=== PATIENT | male | born 1960 | race Caucasian/White ===

== ENCOUNTER 2022-03-17 10:39 | Emergency (ER) | payer OTHER ==
[2022-03-17 11:49] VITALS: BP 142/108
[2022-03-17 12:00] VITALS: BP 148/89
[2022-03-17 12:15] VITALS: BP 149/110
[2022-03-17 13:05] VITALS: BP 136/90
[2022-03-17 13:15] VITALS: BP 143/116
[2022-03-17] MEDS ORDERED: PREDNISONE20 MG PO (13:23)
[2022-03-17 13:30] VITALS: BP 138/87
== END 2022-03-17 13:34 | disposition home or self-care (01) | DRG 556 ==
LOC: ED 10:39
DX: M25.572 Pain in left ankle and joints of left foot (principal)